=== PATIENT | female | born 1965 | race Caucasian/White ===

== ENCOUNTER 2022-01-11 18:30 | Emergency (ER) | payer OTHER ==
[~2022-01-11] VITALS: Ht 175.3 cm; Wt 79.5 kg
[2022-01-11 19:15] LABS: HEMATOCRIT 46.3 % (35.0-45.0); MEAN CORPUSCULAR HGB CONC 34.2 g/dL (33.0-36.5); MEAN PLATELET VOLUME 8.2 FL (7.4-10.4)
[2022-01-11 19:18] LABS: BASOPHILS % (AUTO) 0.3 % (0-1); EOSINOPHILS % (AUTO) 0.1 % (0-6); HEMOGLOBIN 15.8 g/dl (12.0-16.0); LYMPHOCYTES # (AUTO) 1.1 X10'3 (1.1-4.8); LYMPHOCYTES % (AUTO) 19.2 % (21-51); MEAN CORPUSCULAR HEMOGLOBIN 32.5 PG (27.0-31.0); MEAN CORPUSCULAR VOLUME 94.9 FL (78-98); MONOCYTES # (AUTO) 0.5 X10'3 (0-0.9); NEUTROPHILS # (AUTO) 4.2 X10'3 (1.8-7.7); NEUTROPHILS % (AUTO) 71.4 % (42-75); PLATELET COUNT 256 X10'3 (140-440); RED BLOOD COUNT 4.88 X10'6 (4.20-5.60); RED CELL DISTRIBUTION WIDTH 13.6 % (11.5-14.5); WHITE BLOOD COUNT 5.9 X10'3 (4.5-11.0)
[2022-01-11 19:35] LABS: ALANINE AMINOTRANSFERASE 71 U/L (12-78); ALBUMIN 3.8 G/DL (3.4-5.0); ALBUMIN/GLOBULIN RATIO 0.9 (1.1-1.5); ALKALINE PHOSPHATASE 146 IU/L (46-116); ANION GAP 12 (8-16); ASPARTATE AMINO TRANSFERASE 43 U/L (10-37); BILIRUBIN,TOTAL 0.2 MG/DL (0.1-1.0); BLOOD UREA NITROGEN 8 MG/DL (7-18); BUN/CREATININE RATIO 9.8 (6.6-38.0); CALCIUM 8.8 MG/DL (8.5-10.1); CHLORIDE 104 MMOL/L (99-107); CREATININE 0.82 MG/DL (0.40-0.90); GLUCOSE 94 MG/DL (70-104); POTASSIUM 4.1 MMOL/L (3.5-5.1); SODIUM 141 MMOL/L (135-145); TOTAL CARBON DIOXIDE 24.7 MMOL/L (24-32); TOTAL PROTEIN 7.9 G/DL (6.4-8.2); eGFR 72 ML/MIN
--- NOTE | 2022-01-11 22:11 | NUR ---
PT REQUESTED TO DRINK WATER AND HAVE HER VITALS RE-CHECKED. PT PROVIDED WITH WATER. VITALS RE-CHECKED AND DOCUMENTED. PT STILL WAITING IN LOBBY FOR A ROOM
[2022-01-12] MEDS ORDERED: BEBTELOVIMAB 175 MG/2 ML VIAL IV ONE (00:35)
[2022-01-12] MEDS ORDERED: ondansetron/PF 4mg/2ml inj IV ONE (00:35)
[2022-01-12] MEDS ORDERED: ketorolac trometh. 30mg/ml inj. IV ONE (00:35)
[2022-01-12] MEDS ORDERED: acetaminophen 325mg tablet PO ONE (00:35)
[2022-01-12 02:31] VITALS: BP 121/72
== END 2022-01-12 02:34 | disposition home or self-care (01) ==
LOC: ER 18:31 → EDBD 18:31 → ER 01-12 02:34
DX: U07.1 COVID-19 (principal)
CPT/HCPCS: 36415; 71045; 80053; 84484; 85025; 87502; 87503; 87635; 93005; 96374; 96375; 99285; C9803; J1885; J2405; M0222; Q0222